=== PATIENT | female | born 1960 | race Hispanic/Latino ===

== ENCOUNTER 2016-10-08 12:47 | Outpatient (CLI) | payer BC ==
--- NOTE | 2016-10-08 14:05 | XRay Report ---
CHEST 2 VIEWS INDICATION: Cough. COMPARISON: None similar. FINDINGS: Frontal and lateral chest radiographs, 4 images, demonstrate normal cardiomediastinal silhouette. Clear lungs. Thoracic spondylosis and possible lower cervical postsurgical changes. CONCLUSION: No acute disease in the chest. Thank you for the opportunity to participate in this patient's care.
== END 2016-10-08 12:48 | disposition home or self-care (01) ==
LOC: XRAY 12:47
PROVIDERS: ATTEND Emergency Medicine
DX: R05 Cough (principal); M47.894 Other spondylosis, thoracic region
CPT/HCPCS: 71020

== ENCOUNTER 2016-12-09 12:36 | Outpatient (CLI) | payer BC ==
[2016-12-09 13:12] LABS: Alanine Aminotransferase 24 units/L (7-56); Albumin 4.6 g/dL (3.9-5); Albumin/Globulin Ratio 1.5 %; Alkaline Phosphatase 78 units/L (35-129); Anion Gap 19 mmol/L; BUN/Creatinine Ratio 21.66; Bilirubin,Total 0.4 mg/dL (0.1-1.2); Blood Urea Nitrogen 13 mg/dL (7-17); Calcium 9.8 mg/dL (8.4-10.2); Carbon Dioxide 27 mmol/L (22-30); Chloride 101.6 mmol/L (98-107); Cholesterol 181 mg/dL (50-199); Glucose 101 mg/dL (65-100); HDL Cholesterol 63 mg/dL (40-59); LDL Cholesterol,Direct 91 mg/dL (50-130); Sodium 144 mmol/L (137-145); Total Protein 7.6 g/dL (6.3-8.2); Triglycerides 135 mg/dL (2-149)
[2016-12-09 13:15] LABS: Basophils % (Auto) 0.7 % (0.0-1.8); Hematocrit 44.1 % (30.3-42.9); Hemoglobin 14.3 gm/dl (10.1-14.3); Mean Corpuscular HGB Conc 33 % (30-34); Mean Corpuscular Hemoglobin 29 pg (28-32); Mean Corpuscular Volume 90 fl (79-97); Platelet Count 301 K/mm3 (140-440); Red Blood Count 4.91 M/mm3 (3.65-5.03); Red Cell Distribution Width 13.7 % (13.2-15.2)
== END 2016-12-09 12:37 | disposition home or self-care (01) ==
LOC: LAB 12:36
PROVIDERS: ATTEND Internal Medicine
DX: Z00.00 Encounter for general adult medical examination without abnormal findings (principal)
CPT/HCPCS: 36415; 80053; 80061; 84443; 85025

== ENCOUNTER 2017-11-11 10:16 | Outpatient (CLI) | payer BC ==
[2017-11-11 10:30] LABS: Basophils % (Auto) 0.6 % (0.0-1.8); Eosinophils # (Auto) 0.1 K/mm3 (0.0-0.4); Eosinophils % (Auto) 1.3 % (0.0-4.3); Hematocrit 42.6 % (30.3-42.9); Hemoglobin 14.2 gm/dl (10.1-14.3); Lymphocytes # (Auto) 2.5 K/mm3 (1.2-5.4); Lymphocytes % (Auto) 36.3 % (13.4-35.0); Mean Corpuscular HGB Conc 34 % (30-34); Mean Corpuscular Hemoglobin 30 pg (28-32); Mean Corpuscular Volume 89 fl (79-97); Monocytes # (Auto) 0.6 K/mm3 (0.0-0.8); Monocytes % (Auto) 8.1 % (0.0-7.3); Platelet Count 281 K/mm3 (140-440); Red Cell Distribution Width 13.3 % (13.2-15.2)
[2017-11-11 10:49] LABS: Alanine Aminotransferase 25 units/L (7-56); Albumin 4.6 g/dL (3.9-5); BUN/Creatinine Ratio 22; Blood Urea Nitrogen 11 mg/dL (7-17); Calcium 9.3 mg/dL (8.4-10.2); Chol/HDL Ratio 2.23 %; HDL Cholesterol 64 mg/dL (40-59); Hemolysis Index 4; LDL Cholesterol,Direct 66 mg/dL (50-130)
== END 2017-11-11 10:17 | disposition home or self-care (01) ==
LOC: LAB 10:16
PROVIDERS: ATTEND Internal Medicine
DX: Z00.01 Encounter for general adult medical examination with abnormal findings (principal); R79.89 Other specified abnormal findings of blood chemistry; Z79.899 Other long term (current) drug therapy
CPT/HCPCS: 36415; 80053; 80061; 84443; 85025

== ENCOUNTER 2018-05-21 10:43 | Outpatient (CLI) | payer BC ==
--- NOTE | 2018-05-21 12:47 | Mammography Report ---
BILATERAL MAMMOGRAM: FINDINGS: The breasts are almost entirely fat (<25% glandular). No mass, distortion, suspicious calcification, or skin change is seen. No significant change compared to prior examination in November 2015. CAD was utilized. IMPRESSION: Negative mammogram. There is no mammographic evidence of malignancy. RECOMMENDATION: Follow-up per ACS guidelines. BI-RADS CATEGORY: 1 = Negative ACR BI-RADS MAMMOGRAPHIC CODES: 0 = Needs additional imaging evaluation; 1 = Negative; 2 = Benign; 3 = Probably benign; 4 = Suspicious; 5 = Malignant; 6 = Known biopsy-proven malignancy COMMENT: 1. Dense breast tissue, i.e., adenosis, fibrocystic changes, etc., may obscure an underlying neoplasm. 2. Approximately 10% of cancers are not detected with mammography. 3. A negative mammography report should not delay biopsy if a clinically suspicious mass is present. COMMENT: Patient follow-up letters are generated in [employer].
== END 2018-05-21 10:44 | disposition home or self-care (01) ==
LOC: MAMMO 10:43
PROVIDERS: ATTEND Internal Medicine
DX: Z12.31 Encounter for screening mammogram for malignant neoplasm of breast (principal); I10 Essential (primary) hypertension; K21.9 Gastro-esophageal reflux disease without esophagitis; M19.90 Unspecified osteoarthritis, unspecified site; Z90.49 Acquired absence of other specified parts of digestive tract
CPT/HCPCS: 77067

== ENCOUNTER 2018-12-02 11:53 | Outpatient (CLI) | payer BC ==
[2018-12-02 12:37] LABS: Basophils # (Auto) 0.1 K/mm3 (0.0-0.1); Basophils % (Auto) 0.9 % (0.0-1.8); Eosinophils # (Auto) 0.1 K/mm3 (0.0-0.4); Eosinophils % (Auto) 1.5 % (0.0-4.3); Hematocrit 42.6 % (30.3-42.9); Hemoglobin 14.4 gm/dl (10.1-14.3); Lymphocytes # (Auto) 2.4 K/mm3 (1.2-5.4); Lymphocytes % (Auto) 34.3 % (13.4-35.0); Mean Corpuscular HGB Conc 34 % (30-34); Mean Corpuscular Volume 91 fl (79-97); Monocytes # (Auto) 0.5 K/mm3 (0.0-0.8); Monocytes % (Auto) 7.3 % (0.0-7.3); Platelet Count 306 K/mm3 (140-440)
[2018-12-02 12:57] LABS: Alanine Aminotransferase 19 units/L (7-56); Albumin 4.6 g/dL (3.9-5); BUN/Creatinine Ratio 22; Blood Urea Nitrogen 13 mg/dL (7-17); Calcium 9.6 mg/dL (8.4-10.2); HDL Cholesterol 55 mg/dL (40-59); Hemolysis Index 30; LDL Cholesterol,Direct 109 mg/dL (50-130)
== END 2018-12-02 11:54 | disposition home or self-care (01) ==
LOC: LAB 11:53
PROVIDERS: ATTEND Internal Medicine
DX: Z00.00 Encounter for general adult medical examination without abnormal findings (principal); I10 Essential (primary) hypertension; K21.9 Gastro-esophageal reflux disease without esophagitis; Z90.49 Acquired absence of other specified parts of digestive tract
CPT/HCPCS: 36415; 80053; 80061; 84443; 85025

== ENCOUNTER 2019-03-31 10:36 | Outpatient (CLI) | payer BC ==
--- NOTE | 2019-03-31 15:02 | Magnetic Resonance Report ---
MRI CERVICAL SPINE 03/31/2019 INDICATION / CLINICAL INFORMATION: M54.2 ) Cervicalgia. Left upper extremity symptoms COMPARISON: 12/26/2015 FINDINGS: GENERAL OBSERVATIONS: Unenhanced MR images of the cervical spine were obtained and compared to the pr ior exam from 12/26/2015. There is been interval fusion procedure at the C5-6 and C6-7 levels. There is no evidence of spinal cord compression or intrinsic spinal cord abnormality. [id number] ANALYSIS: C7-T1: Minimal diffuse disc bulging. C6-7: Normal postoperative changes. C5-6: Normal postoperative changes. C4-5: Moderate diffuse disc bulging associated with moderate central canal narrowing. There is no doc dence of lateralization. C3-4: Unremarkable. C2-3: Unremarkable. CRANIO-CERVICAL JUNCTION: Unremarkable. BONE MARROW: No significant abnormality. PARASPINAL SOFT TISSUES: No significant abnormality. IMPRESSION: Postoperative changes. Moderate central canal narrowing at C4-5. Signer Name: Jordin Santillan MD Signed: 03/31/2019 2:58 PM Workstation Name: [id number]
== END 2019-03-31 10:37 | disposition home or self-care (01) ==
LOC: MRI 10:36
PROVIDERS: ATTEND Orthopaedic Surgery
DX: M48.02 Spinal stenosis, cervical region (principal); I10 Essential (primary) hypertension; K21.9 Gastro-esophageal reflux disease without esophagitis; Z90.49 Acquired absence of other specified parts of digestive tract
CPT/HCPCS: 72141

== ENCOUNTER 2019-04-04 09:07 | Outpatient (CLI) | payer BC ==
[2019-04-04] MEDS ORDERED: LEXISCAN IV ONE ×2 (11:21→11:40)
[2019-04-04 12:45] VITALS: BP 147/80
== END 2019-04-04 09:08 | disposition home or self-care (01) ==
LOC: CARD 09:07
PROVIDERS: ATTEND Internal Medicine Cardiovascular Disease
DX: I10 Essential (primary) hypertension (principal); K21.9 Gastro-esophageal reflux disease without esophagitis
CPT/HCPCS: 78452; 93017; 93306; A9502; J2785

== ENCOUNTER 2019-04-12 06:52 | Day surgery (SDC) | payer BC ==
--- NOTE | 2019-04-12 09:23 | Anesthesia Day of Surgery ---
Anesthesia Day of Surgery - Day of Surgery Patient Examined: Yes Patient H&P Reviewed: Yes Patient is NPO: Yes Cardiac Clearance: Yes
--- NOTE | 2019-04-12 09:26 | Anesthesia Consultation ---
Anesthesia Consult and Med Hx Date of service: 04/12/19 - Airway ROM Head & Neck: Adequate (S/P ACDF) Mental/Hyoid Distance: Adequate Mallampati Class: Class III Intubation Access Assessment: Probably Good - Pre-Operative Health Status ASA Pre-Surgery Classification: ASA3 Proposed Anesthetic Plan: MAC - Pulmonary Hx Smoking: No Hx Asthma: No COPD: No Hx Pneumonia: Yes (20 YRS AGO) Hx Sleep Apnea: Yes (possible BMI is 41) - Cardiovascular System Hx Hypertension: Yes Hx Coronary Artery Disease: No (Recent ECHO/NST ok per pt; cardiac clearance on chart) Hx Heart Murmur: Yes - Central Nervous System Hx Psychiatric Problems: No - Gastrointestinal Hx Gastroesophageal Reflux Disease: Yes - Endocrine Hx End Stage Renal Disease: No Hx Liver Disease: Yes (Fatty Liver) Hx Insulin Dependent Diabetes: No - Hematic Hx Anemia: No - Other Systems Hx Cancer: No
[2019-04-12] MEDS ORDERED: NACL 0.9% 1000 ML 1,000 ML IV SCH (10:00)
[2019-04-12] MEDS ORDERED: DIPRIVAN 10 MG/ML IV ONE ×2 (11:13→11:14)
--- NOTE | 2019-04-12 11:37 | Short Stay Summary ---
Short Stay Documentation Date of service: 04/12/19 Narrative H&P: see office H&P dated 04/01/19 - History H&P: obtained from office - Allergies and Medications Current Medications: Allergies cefadroxil hydrate [From Duricef] Adverse Reaction (Verified 07/17/14 16:00) Hives celecoxib [From Celebrex] Adverse Reaction (Verified 07/17/14 16:00) Hives Home Medications Medication Instructions Recorded Confirmed Last Taken Type Amlodipine Besylate 1 tab PO DAILY 07/17/14 03/04/16 03/04/16 05:00 History Docosahexanoic Acid [Algal [place]-3 1 cap PO DAILY 07/17/14 03/04/16 03/03/16 History Dha] Mv,Thanh,Min/Iron/Folic Acid/Lut 1 tab PO DAILY 07/17/14 03/04/16 2 Weeks Ago History [Complete Multi Tablet] ~02/19/16 hydroCHLOROthiazide [HCTZ] 1 cap PO DAILY 07/17/14 03/04/16 03/03/16 History AtorvaSTATin [Lipitor] 10 mg PO QDAY 02/22/16 03/04/16 03/02/16 History Tizanidine HCl [Zanaflex] 4 mg PO TID PRN 02/22/16 03/04/16 03/02/16 History Ubidecarenone [Coq-10] 100 mg PO QDAY 02/22/16 03/04/16 03/02/16 History Timolol [Betimol] 1 drop OU DAILY 03/04/16 03/04/16 03/04/16 05:00 History Cyclobenzaprine [Flexeril 10 MG 10 mg PO Q8H PRN #60 tablet 03/06/16 Unknown Rx TAB] oxyCODONE /ACETAMINOPHEN [Percocet 1 tab PO Q6H PRN #30 tablet 03/06/16 Unknown Rx 5/325 mg] Active Medications Sodium Chloride (Nacl 0.9% 1000 Ml) 1,000 mls @ 50 mls/hr IV DIRECT [place] - Brief post op/procedure progress note Date of procedure: 04/12/19 Findings: report dictated Estimated blood loss: none Pathology: list (descending and sigmoid polyps) Specimen disposition: to lab Condition: stable - Disposition Condition at discharge: Good Disposition: DC-01 TO HOME OR SELFCARE - Discharge Diagnoses (1) Personal history of colonic polyps Status: Acute Short Stay Discharge Plan Activity: other (No driving for 24 hours. No NSAIDS for 7 days) Weight Bearing Status: Full Weight Bearing Diet: regular Follow up with: DONI KOHLI MD [Primary Care Provider] - 7 Days
--- NOTE | 2019-04-12 11:40 | Operative Report ---
Operative Report Operative Report: Date of procedure: 04/12/2019 Preprocedure diagnosis: Personal history of colon polyps, last study 5 years ag o. Post procedure diagnosis: Sigmoid and descending colon polyps Procedure: Colonoscopy to the cecum closely and hot snare polypectomies Endoscopist: Dr. Borges Anesthesia: Monitored anesthesia care per anesthesia department Estimated blood loss: 0 Medications: Monitored anesthesia care. See separate report by anesthesia for details. After careful discussion of the nature and purpose of the procedure as well as details of the technique risks benefits and alternatives the patient gave consent. Please see recent history and physical from the office. The patient was placed in the left lateral decubitus position and medicated per anesthesia. A rectal exam was performed sphincter tone was normal there were no masses palpable. The [employer] 570 scope was passed transanally and advanced under continuous direct vision without difficulty to the cecum. The colon was well prepared. The cecum was normal. The ascending colon was normal and on forward and retroflexed views. The transverse colon is normal. The descending colon revealed a 5 mm sessile polyp which was removed with cold snare resection and retrieved by suction. In the sigmoid colon there was a 9 mm polyp on the stalk. The polyp was removed with snare electrocautery at the stalk without difficulty. No bleeding was encountered. The rectum was normal on forward and retroflexed views. The procedure was well-tolerated overall and the patient was observed in recovery. Conclusions: 5 mm descending colon polyp and 9 mm sigmoid colon polyp. Cold and hot snare polypectomies performed respectively.. Plan: Await pathology. Repeat colonoscopy in 3-5 years depending on the histology. Signed electronically: Andrea Borges M.D.
[2019-04-12 12:07] VITALS: BP 120/64
[2019-04-12] MEDS ORDERED: WATER FOR IRRIG STERILE IR ONE (12:45)
[2019-04-12] MEDS ORDERED: XYLOCAINE MPF 2% ONE (13:00)
== END 2019-04-12 06:53 | disposition home or self-care (01) ==
LOC: GIO 06:52
PROVIDERS: ATTEND Internal Medicine Gastroenterology
DX: Z12.11 Encounter for screening for malignant neoplasm of colon (principal); D12.4 Benign neoplasm of descending colon; D12.5 Benign neoplasm of sigmoid colon; H40.10X0 Unspecified open-angle glaucoma, stage unspecified; E78.00 Pure hypercholesterolemia, unspecified; I25.10 Atherosclerotic heart disease of native coronary artery without angina pectoris; G47.30 Sleep apnea, unspecified; I10 Essential (primary) hypertension; K21.9 Gastro-esophageal reflux disease without esophagitis; M19.90 Unspecified osteoarthritis, unspecified site; F41.9 Anxiety disorder, unspecified; Z98.890 Other specified postprocedural states; Z79.899 Other long term (current) drug therapy; Z80.0 Family history of malignant neoplasm of digestive organs; Z83.71 Family history of colonic polyps; Z86.010 Personal history of colon polyps; Z90.49 Acquired absence of other specified parts of digestive tract; Z88.8 Allergy status to other drugs, medicaments and biological substances
CPT/HCPCS: 45385; 88305; J2704; J7030

== ENCOUNTER 2019-04-14 10:15 | Outpatient (CLI) | payer BC ==
--- NOTE | 2019-04-14 11:59 | Ultrasound Report ---
Transabdominal and endovaginal pelvic ultrasound INDICATION: Left pelvic pain x5 days FINDINGS: Uterus measures 6.3 x 2.8 x 3.5 cm and appears normal. Endometrial stripe is normal at 11 m m. Left ovary is not identified. Right ovary measures 2.7 x 1.7 x 2.8 cm and appears normal. No free fluid is seen. IMPRESSION: Left ovary not seen. Otherwise negative study. Signer Name: Paul Gotti MD Signed: 04/14/2019 11:54 AM Workstation Name: [id number]
== END 2019-04-14 10:16 | disposition home or self-care (01) ==
LOC: US 10:15
DX: R10.2 Pelvic and perineal pain (principal); E78.00 Pure hypercholesterolemia, unspecified; I10 Essential (primary) hypertension; K21.9 Gastro-esophageal reflux disease without esophagitis; M16.0 Bilateral primary osteoarthritis of hip; F41.9 Anxiety disorder, unspecified; Z90.721 Acquired absence of ovaries, unilateral
CPT/HCPCS: 76830; 76856